=== PATIENT | female | born 2000 | race Caucasian/White ===

== ENCOUNTER 2022-11-01 03:01 | Emergency (ER) | payer OTHER, SELFPAY ==
--- NOTE | ~2022-11-01 | CT_ITS ---
EXAMINATION: CT abdomen pelvis w con DATE: 11/01/2022 05:00 INDICATION: Low abdominal pain. TECHNIQUE: Computed tomography (CT) of the abdomen and pelvis was performed with 100 mL Omnipaque 350 intravenous contrast. Automated exposure control and iterative reconstruction technique were employe d. The dose-length product was 322.86 mGy-cm. COMPARISON: None. FINDINGS: The visualized portions of the lung bases are clear without pneumonia or pleural effusion. The heart size is normal. No pericardial effusion. The liver, gallbladder, spleen, pancreas, and adre nal glands are normal. There are cysts in the kidneys measuring up to 5 mm on the left. There is a la rge volume of stool in the colon. There are no dilated loops of bowel. The appendix is normal. There are no pathologically enlarged lymph nodes. There is no free intraperitoneal fluid. There is mild lum bar spondylosis. IMPRESSION: 1. No etiology for the patient's symptoms. Reviewed, dictated and finalized at location A.
[2022-11-01 03:06] VITALS: BP 125/86; PULSE 112; RESP 20; TEMP 36.7; O2SAT 100
[2022-11-01 04:05] LABS: Basophils Percent Auto 0.4 % (0.2-1.2); Eosinophils Absolute Auto 0.1 K/mm3 (0-0.3); Eosinophils Percent Auto 0.9 % (0-4.4); Hematocrit 36.3 % (37.0-47.0); Hemoglobin 11.8 g/dL (12.0-15.0); Immature Granulocyte Absolute 0.01 K/mm3 (0.00-0.031); Immature Granulocyte Percent A 0.1 % (0-0.5); Lymphocytes Absolute Auto 3.22 K/mm3 (0.9-3.2); Lymphocytes Percent Auto 43.3 % (18.3-44.2); Mean Corpuscular HGB Conc 32.5 g/dl (32-36); Mean Corpuscular Hemoglobin 29.5 pg (26-34); Mean Corpuscular Volume 90.8 fl (80-100); Mean Platelet Volume 10.2 fl (7.4-10.4); Monocytes Absolute Auto 0.5 K/mm3 (0.1-0.6); Neutrophils Absolute Auto 3.7 K/mm3 (1.3-6.7); Neutrophils Percent Auto 49.3 % (45.5-73.1); Platelet Count Result 240 k/mm3 (150-375); Red Cell Distribution Width 12.3 % (11.5-14.5); White Blood Count 7.4 K/mm3 (4.5-10.0)
[2022-11-01] MEDS: MORPHINE SULFATE (*CRX) 4 MG/ML INJ IV PUSH (04:05)
[2022-11-01 04:06] LABS: Appearance Urine Clear (Clear); Bilirubin Urine Negative (Negative); Blood Urine Negative (Negative); Color Urine Yellow (Yellow); Glucose Urine UA Negative (Negative); Ketones Urine Negative (Negative); Leukocyte Esterase Ur Negative LEU/UL (Negative); Nitrate Urine Negative (Negative); Protein Urine Negative (Negative); Urobilinogen Urine 0.2 mg/dL (<2.0); pH Urine 5.5 (5.0-9.0)
[2022-11-01 04:15] LABS: Specific Grav Ur 1.038 (1.001-1.035)
[2022-11-01 04:16] LABS: Add Urine Microscopic? NO; Alanine Aminotransferase 18 U/L (6-35); Albumin Level 4.4 g/dL (3.7-5.6); Alkaline Phosphatase 58 U/L (45-116); Anion Gap 6 mmol/L (8-16); Aspartate Amino Transferase 23 U/L (14-36); Bilirubin,Total 0.8 mg/dL (0.2-1.3); Blood Urea Nitrogen 18 mg/dL (8-21); Calcium 8.9 mg/dL (8.9-10.7); Carbon Dioxide 26 mmol/L (22-30); Chloride 106 mmol/L (98-107); Estimated CRCL calculation 88 ml/min; Estimated Glomerular Filt Rate > 60; Glucose 99 mg/dL (65-110); Lipase 93 U/L (23-300); Potassium 4.2 mmol/L (3.4-5.0); Sodium 138 mmol/L (134-143)
--- NOTE | 2022-11-01 04:51 | ED.GENADULT ---
HPI - General Adult General Chief complaint: Abdominal Pain <Brad Jama MD - Last Filed: 11/01/22 04:53> Stated complaint: abd cramping <Brad Jama MD - Last Filed: 11/01/22 04:53> Time Seen by Provider: 11/01/22 03:30 <Brad Jama MD - Last Filed: 11/01/22 04:53> History of Present Illness HPI narrative: Patient is a 21-year-old female who presents since the ER with abdominal cramping. Ongoing over the last 4 days since she finished her menstrual cycle. No vaginal discharge. Discomfort is worsened by attempting to have bowel movement. No history of kidney stones or ovarian cyst. No history of diverticulitis. She has no diarrhea. She has had trivial dysuria and no urinary frequency. She is found no alleviating factors other than hot pad for an hour at a time. Symptoms radiate into her low back. <Bard Jama MD - Last Filed: 11/01/22 04:53> Related Data Allergies/adverse reactions: Allergies Allergy/AdvReac Type Severity Reaction Status Date / Time tree nut Allergy Unknown Verified 11/01/22 03:59 <Brad Jama MD - Last Filed: 11/01/22 04:53> Review of Systems Review of Systems: All systems reviewed & are unremarkable except as noted in HPI and below <Brad Jama MD - Last Filed: 11/01/22 04:53> Constitutional: Constitutional: Denies chills, Denies fatigue and Denies fever(s) <Brad Jama MD - Last Filed: 11/01/22 04:53> ENT: Denies nasal congestion and Denies sore throat <Brad Jama MD - Last Filed: 11/01/22 04:53> Respiratory: Respiratory: Denies cough and Denies dyspnea <Brad Jama MD - Last Filed: 11/01/22 04:53> Gastrointestinal: Gastrointestinal: Reports abdominal pain, Reports bloating, Denies constipation, Denies diarrhea, Denies nausea and Denies vomiting <Brad Jama MD - Last Filed: 11/01/22 04:53> Genitourinary: Genitourinary: Denies nocturia, Reports dysuria and Reports flank pain <Brad Jama MD - Last Filed: 11/01/22 04:53> PMFSH Past Medical History Medical History: Medical History (Updated 11/01/22 @ 08:28 by Ricardo Cabello MD) Healthy female adult <Brad Jama MD - Last Filed: 11/01/22 04:53> Surgical History Surgical History: Surgical History (Updated 11/01/22 @ 04:53 by Brad Jama MD) No history of previous surgery <Brad Jama MD - Last Filed: 11/01/22 04:53> Exam Narrative: GENERAL: Well-appearing, well-nourished, and in no acute distress. HEAD: Normocephalic, atraumatic. CHEST: Clear to auscultation. No respiratory distress. HEART: Regular rate and rhythm. Normal peripheral pulses. Back: No CVA tenderness. ABDOMEN: Soft, nontender, nondistended. EXTREMITIES: Normal range of motion. No edema. SKIN: Warm, dry, no rash. NEURO: Alert and oriented x3. PSYCH: Normal mood and affect. <Brad Jama MD - Last Filed: 11/01/22 04:53> Course Course Emergency Course: Patient was signed out from Dr. Jama pending results of CT scan. CT scan showed no evidence of acute findings. Patient did have an increased amount of stool present by my own personal review but no evidence of obstruction or impaction. <Ricardo Cabello MD - Last Filed: 11/01/22 08:28> Vital Signs Vital signs: Vital Signs Temperature 36.7 C 11/01/22 03:06 Pulse Rate 112 H 11/01/22 03:06 Respiratory Rate 20 11/01/22 03:06 Blood Pressure 125/86 11/01/22 03:06 Pulse Oximetry 100 11/01/22 03:06 Oxygen Delivery Room Air 11/01/22 03:06 Temperature 36.7 C 11/01/22 03:06 Pulse Rate 82 11/01/22 07:01 Respiratory Rate 16 11/01/22 07:01 Blood Pressure 113/76 11/01/22 07:01 Pulse Oximetry 100 11/01/22 07:01 Oxygen Delivery Room Air 11/01/22 03:06 <Brad Jama MD - Last Filed: 11/01/22 04:53> Vital Signs Temperature 36.7 C 11/01/22 03:06 Pulse Rate 112 H 11/01/22 0
[2022-11-01 07:01] VITALS: BP 113/76; PULSE 82; RESP 16; O2SAT 100
--- NOTE | 2022-11-01 07:04 | PC.NURSE ---
Nurse report given to Niall WINTER
[2022-11-01 08:44] VITALS: BP 115/66; PULSE 90; RESP 18; O2SAT 99
== END 2022-11-01 08:50 | disposition home or self-care (01) ==
PROVIDERS: Emergency Provider Emergency Medicine; PCP Family Medicine
DX: R10.84 Generalized abdominal pain (principal)
CPT/HCPCS: 36415; 74177; 80053; 81003; 81025; 83690; 85025; 96374; 99284; J2270; Q9967

== ENCOUNTER 2022-12-29 11:57 | Outpatient (CLI) | payer OTHER, SELFPAY ==
[2022-12-29 14:54] LABS: Hematocrit 36.1 % (37.0-47.0); Hemoglobin 11.7 g/dL (12.0-15.0)
== END 2022-12-29 11:58 | disposition home or self-care (01) ==
PROVIDERS: PCP Family Medicine; Visit Provider Student in an Organized Health Care Education/Training Program
DX: Z01.818 Encounter for other preprocedural examination (principal); N93.9 Abnormal uterine and vaginal bleeding, unspecified
CPT/HCPCS: 36415; 85014; 85018

== ENCOUNTER 2023-01-05 01:24 | Day surgery (SDC) | payer OTHER, SELFPAY ==
[2022-12-27 14:23] VITALS: BMI 24.2
--- NOTE | 2022-12-27 14:33 | PC.NURSE ---
Report to the Outpatient Waiting Room, entrance under the green pavilion located off [facility], at time 10:00AM on date 01-05-23. Planned Procedure Time: 12:00PM. Time changes happen often and if your time is changed the preop area will call you the afternoon before. - You and your visitor will be asked to self-screen and do not enter if you have any COVID symptoms. - A mask is optional within the hospital at this time. Patients may have clear liquids (water, carbonated beverages, clear teas, apple juice) until 3 hours prior to surgery (09:00AM) with a maximum of 20 ounces. - No food from midnight until time of surgery Take the following medications with a SIP of water the morning of surgery: CONTROL, INHALERS DO NOT STOP ANY OF YOUR OTHER PRESCRIPTION MEDICATIONS PRIOR TO SURGERY ?EXCEPT THE FOLLOWING Medications to discontinue per physician: N/A Please no make-up, nail lithuanian, hairspray, perfume, deodorant, or body powder the day of surgery. No jewelry (including any body piercings) or valuables the day of surgery, leave them at home. Please take a shower or bath the night before, or the morning of, surgery with an antibacterial soap. Wear comfortable, loose fitting clothing. - Jewelry must be removed prior to entering the operating room. Rings and piercings that are not removed may be cut off. - The hospital will not accept responsibility for valuables. - Please leave all valuables, including medications, at home the day of surgery. If you are going home after surgery, a licensed combine driver must drive you home. - NO public transportation without another adult if you receive anesthesia. - We recommend that an adult stay with you for 24 hours following discharge. - We also recommend that you do not drive, make important decision, drink alcoholic beverages, or take any drugs that were not prescribed by your health care provider for at least 24 hours after your discharge time. Follow any additional instructions given to you from your surgeon. If you or anyone in your household have experienced Covid symptoms in the past week, please notify your surgeon or the nurse liaison at the phone number below for possible testing. Telephone instructions given to PATIENT and asked if any additional questions and then verbalized understanding. Patient advised to call surgeon office or pre surgery nurse liaison [phone] if any additional questions.
--- NOTE | 2023-01-05 08:39 | PM.IMHP ---
H&P: HPI History of Present Illness Date/Time: 01/05/23 08:39 Chief Complaint: abnormal uterine bleeding pelvic pain Narrative: 22-year-old female who presents for hysteroscopy D&C for pelvic pain and abnormal bleeding.? Patient states she has been dealing with painful heavy menses since last April.? Patient is currently on hormonal contraceptive pills.? Patient states she has regular monthly bleeding on her placebo week.? Patient states her bleeding profile has become heavier and heavier.? Patient states her bleeding is also painful.? Patient states she has taken scheduled NSAIDs around her cycle with no improvement pain.? Pelvic US showed concerns for possible intrauterine fibroid. Review of Systems Cardiovascular: Cardiovascular: Denies chest pain, Denies leg edema, Denies palpitations, Denies dyspnea and Denies dyspnea on exertion Respiratory: Respiratory: Denies cough, Denies dyspnea and Denies dyspnea on exertion Gastrointestinal: Gastrointestinal: Denies abdominal pain, Denies constipation, Denies diarrhea, Denies nausea and Denies vomiting Genitourinary: Genitourinary: Denies hematuria, Denies urinary frequency, Denies dysuria, Denies pelvic pain, Denies urinary incontinence and Denies vaginal discharge Neurologic: Reports system reviewed and no additional complaints, except as documented Psychiatric: Psychiatric: Reports no additional psychiatric complaints Endocrine: Endocrine: Denies palpitations PMFSH Past Medical History Medical History (Updated 01/05/23 @ 08:40 by Obed Askew MD) Asthma Healthy female adult Surgical History Surgical History (Updated 11/01/22 @ 04:53 by Brad Jama MD) No history of previous surgery Social History Social History (Updated 12/12/22 @ 13:50 by Gisela Barrera CMA) Smoking status: Never smoker Second hand tobacco smoke exposure: No Alcohol intake: never Substance use: never Substance use type: does not use Lack of Transportation: No Lack of Food: Never True Current Housing: I Have Housing Concerned About Future Housing: No Difficulty Paying Gas/Electric Bills: No Difficulty Paying for Meds: No Currently Unemployed: No Education: Associate Degree Difficulty w/ Childcare or Family Care: No Living arrangements: with family Occupation/Education: occupation Gender identity (if verbalized by the patient): Female Sexual Orientation (if Verbalized by the Patient): Straight or Heterosexual Spiritual care concerns: No Meds Home Medications and Allergies Home Medications Medication Instructions Recorded Confirmed Type fluticasone propionate 44 1 inh inhalation BID 12/12/22 12/27/22 History mcg/actuation HFA aerosol inhaler (Flovent HFA) albuterol sulfate 90 mcg/actuation 1 inh inhalation PRN PRN Shortness 12/27/22 12/27/22 History aerosol inhaler Of Breath norgestimate 0.25 mg-ethinyl 1 tablet PO DAILY #28 tabs 01/01/23 Rx estradiol 35 mcg tablet (Kim) Allergies Allergy/AdvReac Type Severity Reaction Status Date / Time peanut Allergy Mild Hives Verified 12/27/22 14:26 tree nut Allergy Mild Hives Verified 12/27/22 14:25 Exam Const: General: no acute distress Eyes: EOM: EOMs intact bilaterally Neck: Neck: supple Thyroid: thyroid normal Chest: Breast/axilla inspection: normal inspection of the breasts Breast/axilla palpation: normal palpation of the breasts, normal palpation of the axillae and no axillary lymphadenopathy Resp: Effort & Inspection: normal respiratory effort Auscultation: clear to auscultation bilaterally Cardio: Rate: regular rate Rhythm: regular rhythm GI: Inspection: non-distended GI Palp: Yes Soft to palpation, No Tenderness to palpation present (GI) and No Guarding due to palpation present (GI) Auscultation: normal bowel sounds : General: No bladder normal to palpation External Female Exam: normal external appearance Speculum Exam - Vagina: normal vag
[2023-01-05 10:30] VITALS: BP 111/72; PULSE 94; RESP 16; TEMP 36.5; O2SAT 100
[2023-01-05] MEDS: ACETAMINOPHEN 500 MG TABLET 1000 MG PO (10:35)
[2023-01-05] MEDS: LACTATED RINGERS 1,000 ML 30 ML IV CONT (10:35)
[2023-01-05 10:51] LABS: SPREG INTERNAL CONTROL Positive; Serum Qual hCG Negative
--- NOTE | 2023-01-05 11:31 | WPDANESEPPF ---
Anes - Initial Pre Proc Eval Procedure: Operation Date: 01/05/23 12:00 Proposed Procedures p Hysteroscopy Dilation and Curettage - Obed Askew MD Date/Time: 01/05/23 11:31 Surgeon: Obed Askew MD Pre Op Diagnosis: Pelvic Pain Patient Data Age: 22 Gender: F Height: 1.59 m Weight: 62.8 kg Last Vital Signs Temp 36.5 C 01/05/23 10:30 Pulse 94 01/05/23 10:30 Resp 16 01/05/23 10:30 BP 111/72 01/05/23 10:30 Pulse Ox 100 01/05/23 10:30 O2 Del Method Room Air 01/05/23 10:30 Allergies Allergy/AdvReac Type Severity Reaction Status Date / Time peanut Allergy Mild Hives Verified 01/05/23 10:29 tree nut Allergy Mild Hives Verified 01/05/23 10:29 Home Medications Medication Instructions Recorded Confirmed Type fluticasone propionate 44 1 inh inhalation BID 12/12/22 12/27/22 History mcg/actuation HFA aerosol inhaler (Flovent HFA) albuterol sulfate 90 mcg/actuation 1 inh inhalation PRN PRN Shortness 12/27/22 12/27/22 History aerosol inhaler Of Breath norgestimate 0.25 mg-ethinyl 1 tablet PO DAILY #28 tabs 01/01/23 Rx estradiol 35 mcg tablet (Kim) Laboratory Tests 01/05/23 10:18 Serum HCG, Qual Negative Patient hx anesthesia problems: none Family hx anesthesia problems: none Results Review: All pre-operative results and documents have been reviewed as part of the pre-operative evaluation. [facility] Past Medical History Medical History (Updated 01/05/23 @ 11:31 by Kelvin Navarro MD) Anxiety Asthma Surgical History Surgical History No history of previous surgery Social History Social History Smoking status: Never smoker Second hand tobacco smoke exposure: No Alcohol intake: never Substance use: never Substance use type: does not use Lack of Transportation: No Lack of Food: Never True Current Housing: I Have Housing Concerned About Future Housing: No Difficulty Paying Gas/Electric Bills: No Difficulty Paying for Meds: No Currently Unemployed: No Education: Associate Degree Difficulty w/ Childcare or Family Care: No Living arrangements: with family Occupation/Education: occupation Gender identity (if verbalized by the patient): Female Sexual Orientation (if Verbalized by the Patient): Straight or Heterosexual Spiritual care concerns: No Anes - Eval Final PreProcedure Day of Procedure 01/05/23 11:31 Patient weight: normal Heart: regular rate and rhythm Lungs: clear to auscultation Airway: Mallampati scale class II Neurological: alert and oriented Last oral intake: >/= 8 hours ASA classification: II Emergent: no Anesthetic plan: proceed Anesthesia type and monitoring: general GIVS and standard monitoring Results Review: All pre-operative results and documents have been reviewed as part of the pre-operative evaluation. Informed Consent: The patient's anesthetic plan and its attendant risks and benefits were discussed with the patient/family/POA. Questions were solicited and answers provided to the satisfaction of the patient/family/POA.
--- NOTE | 2023-01-05 11:44 | WPDHPUPDATE1 ---
History and Physical Update Update Date/Time: 01/05/23 11:44 History and Physical has been reviewed, including an updated exam of the patient. There are NO changes in the patient's condition. Risks, benefits, and alternatives have been discussed and questions answered. Patient agrees to proceed with procedure.
[2023-01-05] MEDS: LIDOCAINE HCL 1% LOCAL INJ 20 ML VIAL INFILTRATE (12:32)
--- NOTE | 2023-01-05 12:46 | W.PM.PROC2 ---
Procedure Note - Detailed Date of Procedure 01/05/23 Pre-op Diagnosis Pelvic Pain abnormal uterine bleeding Post-op Diagnosis Same Procedure Performed paracervical block hysteroscopy dilation & curettage Surgeon Obed Askew MD Anesthesia General Indications abnormal uterine bleeding Findings normal appearing intrauterine cavity. Normal tubal ostia bilaterally Description of Procedure Milady Shields presents for hysteroscopy D&C for the above. She was counseled as to the indications, risks, benefits, and alternatives to surgery, with the risks including bleeding, infection, damage to surrounding organs, VTE, and complications of anesthesia. Her verbal and written consent was obtained. PROCEDURE: The patient was taken to the OR and general anesthesia induced. She was prepped and draped in Ceasar stirrups with support of the back and bilateral lower extremities. I/O catheterization performed of the bladder. The above findings were noted. Infiltration with 1% lidocaine at the 3 and 9 o'clock cervical positions was performed. A single tooth tenaculum was placed on the anterior lip of the cervix. The cervix was dilated with sequential Jenae dilators. Hysteroscopy, using a normal saline medium, was performed and showed the above findings. Sharp uterine curettage was then performed and tissue placed on Telfa. The tenaculum was removed and hemostasis was observed. The patient tolerated the procedure well. Sponge, lap, and needle counts were correct. The patient was taken to the recovery room in stable condition. Estimated Blood Loss 10 Drains No Packing No Pathology Yes (endometrial curettings ) Complications No immediate complications Condition Stable Disposition PACU [facility] Billing Surgery - Charge Forward: Surgery Billing
[2023-01-05 12:49] VITALS: BP 125/88; PULSE 79; RESP 16; O2SAT 100
[2023-01-05] MEDS: fentaNYL CITRATE INJ (*CRX) 100 MCG/2 ML VIAL 25 MCG IV PUSH ×2 (12:58→13:01)
[2023-01-05 13:15] VITALS: BP 111/74; PULSE 74; RESP 16; O2SAT 100
[2023-01-05 13:45] VITALS: BP 105/65; PULSE 72; RESP 16
== END 2023-01-05 14:02 | disposition home or self-care (01) ==
PROVIDERS: PCP Family Medicine; Visit Provider Student in an Organized Health Care Education/Training Program
PROC: 0U5B8ZZ Destruction of Endometrium, Via Natural or Artificial Opening Endoscopic (ICD-10-PCS; CPT 58563; principal; 2023-01-05 12:00)
DX: N93.9 Abnormal uterine and vaginal bleeding, unspecified (principal); R10.2 Pelvic and perineal pain; J45.909 Unspecified asthma, uncomplicated; Z79.51 Long term (current) use of inhaled steroids
CPT/HCPCS: 58558; 36415; 84703; 88305; A9270; J2250; J2405; J2704; J3010; J7120

== ENCOUNTER 2023-11-12 18:59 | Emergency (ER) | payer OTHER, SELFPAY ==
--- NOTE | ~2023-11-12 | XR_ITS ---
EXAM: XR hand LT min 3V DATE: 11/12/2023 19:17 HISTORY: fall 1 TO 1 1/2 WK AGO . COMPARISON: None available. FINDINGS: Normal mineralization. No fracture or dislocation. No lytic or blastic lesion. Joint space s are maintained. No erosion or periosteal change. Soft tissues within normal limits. IMPRESSION: No acute osseous finding in the left hand. Reviewed, dictated and finalized at location K.
--- NOTE | ~2023-11-12 | XR_ITS ---
EXAM: XR wrist LT min 3V DATE: 11/12/2023 21:58 HISTORY: wrist pain, LATERAL SIDE . COMPARISON: 11/12/2023. FINDINGS: Normal mineralization. No fracture or dislocation. No lytic or blastic lesion. Joint space s are maintained. No erosion or periosteal change. Soft tissues within normal limits. IMPRESSION: No acute osseous finding in the left wrist. Reviewed, dictated and finalized at location K.
[2023-11-12 19:00] VITALS: BP 150/93; PULSE 102; RESP 20; TEMP 36.4; O2SAT 100
--- NOTE | 2023-11-12 22:16 | ED.UPPEXIN ---
HPI - Extremity Injury (Upper) General Chief Complaint: Extremity Injury, Upper Stated Complaint: left hand injury Time Seen by Provider: 11/12/23 21:16 History of Present Illness HPI narrative: 22-year-old female presents emergency department for left hand pain for 2 weeks. Patient states 2 weeks ago she slipped and fell, landed on an outstretched hand. She states she has been having pain to her wrist and thenar eminence since with Intermittent tingling and numbness into her 1st through 3rd fingers. states when she wears a splint her symptoms improve when she takes it off it gets worse. She did not hit her head or lose consciousness during the fall, no other injuries acquired. denies possibility of . Related Data Home Medications Medication Instructions Recorded Confirmed fluticasone propionate 44 1 inh inhalation BID 12/12/22 07/16/23 mcg/actuation HFA aerosol inhaler (Flovent HFA) albuterol sulfate 90 mcg/actuation 1 inh inhalation PRN PRN Shortness 12/27/22 07/16/23 aerosol inhaler Of Breath Allergies Allergy/AdvReac Type Severity Reaction Status Date / Time peanut Allergy Mild Hives Verified 07/16/23 14:38 tree nut Allergy Mild Hives Verified 07/16/23 14:38 Review of Systems Review of Systems: CONSTITUTIONAL: Denies fever, chills, or sweats. EYES: Denies visual changes, redness, or discharge. ENT: Denies rhinorrhea, congestion, sore throat, or otalgia. CARDIOVASCULAR: Denies chest pain, palpitations, or edema. RESPIRATORY: Denies cough or dyspnea. GASTROINTESTINAL: Denies abdominal pain, nausea, vomiting, or diarrhea. GENITOURINARY: Denies dysuria or hematuria. SKIN: Denies rash or itching. MUSCULOSKELETAL: See HPI NEUROLOGIC: Denies headache, numbness, or weakness. PSYCHIATRIC: Denies anxiety or depression. [facility] Past Medical History Medical History Anxiety Asthma Surgical History Surgical History History of hysteroscopy D & C Social History Social History Smoking status: Never smoker Second hand tobacco smoke exposure: No Alcohol intake: never Substance use: never Substance use type: does not use Lack of Transportation: No Lack of Food: Never True Current Housing: I Have Housing Concerned About Future Housing: No Difficulty Paying Gas/Electric Bills: No Difficulty Paying for Meds: No Currently Unemployed: No Education: Associate Degree Difficulty w/ Childcare or Family Care: No Living arrangements: with family Occupation/Education: occupation Gender identity (if verbalized by the patient): Female Sexual Orientation (if Verbalized by the Patient): Straight or Heterosexual Spiritual care concerns: No Exam Narrative: GENERAL: Well-appearing, well-nourished, and in no acute distress. HEAD: Normocephalic, atraumatic. NECK: Supple. CHEST: Clear to auscultation. No respiratory distress. HEART: Regular rate and rhythm. No murmur heard. Normal peripheral pulses. EXTREMITIES: LUE: tenderness to the thenar eminence and MCP of the 1st digit extending into the volar aspect of the wrist overlying the flexor tendon. No edema or obvious deformity. No overlying skin changes. Patient has limited flexion of the thumb secondary to pain but does have full extension. Cap refill less than 2. Sensation intact. Radial pulse 2 +. Negative Tinel's and Phalen sign. SKIN: Warm, dry, no rash. NEURO: No focal deficits. Alert and oriented x3 Course Vital Signs Vital signs: Vital Signs Temperature 97.6 F 11/12/23 19:00 Pulse Rate 102 H 11/12/23 19:00 Respiratory Rate 20 11/12/23 19:00 Blood Pressure 150/93 H 11/12/23 19:00 Pulse Oximetry 100 11/12/23 19:00 Oxygen Delivery Room Air 11/12/23 19:00 Temperature 97.6 F 11/12/23 19:00 Pulse Rate
[2023-11-12 22:40] VITALS: BP 119/81; PULSE 89; RESP 18; O2SAT 100
[2023-11-12] MEDS: IBUPROFEN 400 MG TABLET 800 MG PO (22:41)
== END 2023-11-12 22:44 | disposition home or self-care (01) ==
PROVIDERS: Emergency Provider Physician Assistant; PCP Family Medicine
DX: S69.92XA Unspecified injury of left wrist, hand and finger(s), initial encounter (principal); J45.909 Unspecified asthma, uncomplicated; Z79.899 Other long term (current) drug therapy; W01.0XXA Fall on same level from slipping, tripping and stumbling without subsequent striking against object, initial encounter
CPT/HCPCS: 73110; 73130; 99283; A9270